=== PATIENT | female | born 1970 | race Caucasian/White ===

== ENCOUNTER 2018-12-01 17:54 | Emergency (ER) | payer OTHER ==
[~2018-12-01] VITALS: Ht 149.9 cm; Wt 73.3 kg
[~2018-12-01 17:54] MED LIST: AMLO5TAB4 PO; HYDR7CRE RC; PSYL1040 PO
[2018-12-01 18:00] VITALS: Ht 149.9 cm; Wt 73.3 kg
--- NOTE | 2018-12-01 20:43 | ERD ---
ER Documentation Chief Complaint Chief Complaint ref: 2wk history of bloody stools. not dizzy/ weak. HPI 48-year-old female presenting to the ED for a 2-week history of blood in stool. Patient denies shortness of breath abdominal pain headache blurry vision. Patient states this never happened to her before. Patient states she has not used any medication or taking anything for this yet. Patient's vitals were within normal limits. Patient denies any allergies to medications. Patient states that she cannot pinpoint any triggering event that caused the symptoms. ROS All systems reviewed and are negative except as per history of present illness. Medications Home Meds Active Scripts Psyllium Seed* (Metamucil* Powder) 1,040 Gm Powder, 10 GM PO TID for 10 Days, EA Prov:HILDA CAICEDO PA-C 12/01/18 Hydrocortisone Ac/Lidocaine (LIDOCAINE-HC 3-0.5% CREAM) 7 Gm Cream.appl, 7 GM RC BID for 10 Days Prov:HILDA CAICEDO PA-C 12/01/18 Reported Medications Amlodipine Besylate* (Norvasc*) 5 Mg Tablet, 5 MG PO DAILY 06/21/11 Allergies Allergies: Coded Allergies: No Known Allergies (Verified Allergy, Mild, 08/01/09) PMhx/Soc Medical and Surgical Hx: pt denies Medical Hx History of Surgery: No Anesthesia Reaction: No Hx Neurological Disorder: No Hx Respiratory Disorders: No Hx Cardiac Disorders: Yes (HTN) Hx Psychiatric Problems: No Hx Miscellaneous Medical Probl: No Hx Alcohol Use: No Hx Substance Use: No Hx Tobacco Use: No Smoking Status: Never smoker FmHx Family History: No diabetes, No coronary disease, No other Physical Exam Vitals Vital Signs Date Temp Pulse Resp B/P (MAP) Pulse Ox O2 O2 Flow FiO2 Time Delivery Rate 12/01/18 99.6 76 16 164/80 98 18:00 (108) Physical Exam GENERAL: The patient is well-appearing, well-nourished, in no acute distress HEENT: Atraumatic. Conjunctivae are pink. Pupils equal, round, and reactive to light. There is no scleral icterus. Tympanic membranes clear bilaterally. Oropharynx clear. No nystagmus or photophobia. NECK: C-spine is soft and supple. There is no meningismus. There is no cervical lymphadenopathy. CHEST: Clear to auscultation bilaterally. There are no rales, wheezes or rhonchi. HEART: Regular rate and rhythm. No murmurs, clicks, rubs or gallops. ABDOMEN:Soft, nontender and nondistended. Good bowel sounds. No rebound or guarding. No gross peritonitis. No gross organomegaly or masses. No Major sign or McBurney point tenderness. BACK: No midline or flank tenderness. Rectal: Rectal exam was done with stretching machine operator audio visual tech. A thrombosed hemorrhoid was noted on examination Procedures/MDM ED course: The patient was stable throughout the ED course. The patient and/or family informed of laboratory and diagnostic imaging results throughout the ED course. Medical decision makin-year-old female presented to ED for blood in her stool. Patient's physical exam was unremarkable except for a small thrombosed hemorrhoid. The patient's abdomen was soft nontender the patient shows no signs of anemia vitals were normal limit. The patient is afebrile. Patient denies any pain. Advised the patient that we can treat her with a topical cream and increase fiber in her diet. I advised her that if symptoms persist she may need to see a hemorrhoid specialist. The patient is an agreement to this treatment plan and plans to follow-up with her primary care provider 1 to 2 days. Advised patient the symptoms worsen return to ER immediately. Prescription for home: Metamucil Hydrocortisone lidocaine topical cream I have discussed with the patient proper use and common side effects to expert with the medication . I advised the patient/family to speak with the pharmacist dispensing the medication to be advised of any potential drug interactions with other medication or supplements they may be taking. Discharge: At this time, patient is stable for discharge and outpatient management. I have instructed the patient to follow-up with his\her primary care physician in 1 to 2 days. I have discussed with the patient the possibility of needing to see a specialist for further work-up and imaging studies if symptoms persist. I have instructed the patient to promptly return to the ER for any new or worsening symptoms including increased pain, fever, nausea, vomiting, weakness or LOC. The patient and\or family expressed understanding of and agreement with this plan. All questions were answered. Home care instructions were provided. Disclaimer: Inadvertent spelling and grammatical errors are likely due to EHR\dictation software use and do not reflect on the overall quality of patient care. Also, please note that the electronic time recorded on the note does not necessarily reflect the actual time of the patient encounter. Departure Diagnosis: Primary Impression: Thrombosed external hemorrhoid Condition: Stable Patient Instructions: Thrombosed Hemorrhoids Referrals: [facility] YOU HAVE RECEIVED A MEDICAL SCREENING EXAM AND THE RESULTS INDICATE THAT YOU DO NOT HAVE A CONDITION THAT REQUIRES URGENT TREATMENT IN THE EMERGENCY DEPARTMENT. FURTHER EVALUATION AND TREATMENT OF YOUR CONDITION CAN WAIT UNTIL YOU ARE SEEN IN YOUR DOCTORS OFFICE WITHIN THE NEXT 1-2 DAYS. IT IS YOUR RESPONSIBILITY TO MAKE AN APPOINTMENT FOR FOLOW-UP CARE. IF YOU HAVE A PRIMARY DOCTOR --you should call your primary doctor and schedule an appointment IF YOU DO NOT HAVE A PRIMARY DOCTOR YOU CAN CALL OUR PHYSICIAN REFERRAL HOTLINE AT IF YOU CAN NOT AFFORD TO SEE A PHYSICIAN YOU CAN CHOSE FROM THE FOLLOWING [facility] [address] [facility] [facility] [address] [facility] [address] [facility] [address] [facility] [address] [facility]. [facility] [address] [facility] [facility] YOU HAVE RECEIVED A MEDICAL SCREENING EXAM AND THE RESULTS INDICATE THAT YOU DO NOT HAVE A CONDITION THAT REQUIRES URGENT TREATMENT IN THE EMERGENCY DEPARTMENT. FURTHER EVALUATION AND TREATMENT OF YOUR CONDITION CAN WAIT UNTIL YOU ARE SEEN IN YOUR DOCTORS OFFICE WITHIN THE NEXT 1-2 DAYS. IT IS YOUR RESPONSIBILITY TO MAKE AN APPOINTMENT FOR FOLOW-UP CARE. IF YOU HAVE A PRIMARY DOCTOR --you should call your primary doctor and schedule and appointment IF YOU DO NOT HAVE A PRIMARY DOCTOR YOU CAN CALL OUR PHYSICIAN REFERRAL HOTLINE AT . IF YOU CAN NOT AFFORD TO SEE A PHYSICIAN YOU CAN CHOSE FROM THE FOLLOWING [facility] INSTITUTIONS: [facility] [address] [place] [address] [facility] [address] [place] [address] [facility] + [address] [address] Additional Instructions: Call your primary care doctor TOMORROW for an appointment during the next 1-2 days.See the doctor sooner or return here if your condition worsens before your appointment time. HILDA CAICEDO PA-C Dec 01, 2018 20:43
== END 2018-12-01 19:00 | disposition home or self-care (01) ==
LOC: FTE 17:54
DX: K64.5 Perianal venous thrombosis (principal); I10 Essential (primary) hypertension
CPT/HCPCS: 99284